=== PATIENT | female | born 1950 | race Caucasian/White ===

== ENCOUNTER → 2020-10-26 | Outpatient (CLI) | payer MEDICARE, BC | LOC: RAD 12:49 | DX: R59.1 Generalized enlarged lymph nodes (principal); R19.09 Other intra-abdominal and pelvic swelling, mass and lump ==

== ENCOUNTER → 2020-11-03 | Outpatient (CLI) | payer MEDICARE, BC | LOC: RAD 12:30 | DX: R59.0 Localized enlarged lymph nodes (principal) ==